=== PATIENT | female | born 1975 | race Two or more races ===

== ENCOUNTER → 2020-07-06 | Outpatient (CLI) | payer OTHER, SELFPAY ==
[2020-07-12 04:23] LABS: HPV APTIMA, High Risk Negative (Negative)
[2020-07-12 04:24] LABS: HPV Reflexed? NOT INDICATED
== END | disposition home or self-care (01) ==
LOC: LABSPEC 07-07 10:14
PROVIDERS: Visit Provider Student in an Organized Health Care Education/Training Program
DX: Z12.4 Encounter for screening for malignant neoplasm of cervix (principal)
CPT/HCPCS: 88175; G0145